=== PATIENT | male | born 1965 | race Caucasian/White ===

== ENCOUNTER 2023-09-18 14:43 | Emergency (ER) | payer MEDICAID ==
[~2023-09-18] VITALS: Ht 180.3 cm; Wt 136.2 kg
[2023-09-18 14:58] VITALS: BP 132/93; PULSE 99; RESP 16; O2SAT 96
[2023-09-18] MEDS ORDERED: KETOROLAC TROMETH 60MG/2ML VIAL IM ONE (16:15)
[2023-09-18] MEDS ORDERED: IBUP-1455 PO (18:19)
== END 2023-09-18 22:56 | disposition home or self-care (01) ==
LOC: ER 14:43
DX: M25.461 Effusion, right knee (principal); M25.561 Pain in right knee; X58.XXXA Exposure to other specified factors, initial encounter; Y93.89 Activity, other specified; Y92.89 Other specified places as the place of occurrence of the external cause; Y99.8 Other external cause status
CPT/HCPCS: 73700